=== PATIENT | female | born 1955 | race Caucasian/White ===

== ENCOUNTER → 2023-07-18 | Day surgery (SDC) | payer OTHER ==
--- NOTE | 2023-07-18 10:47 | RAD REPORT ---
EXAM DESCRIPTION: Ultrasound-guided vacuum assisted right axillary tail core biopsy CLINICAL HISTORY: Right axillary tail/ breast mass. N63.31 COMPARISON: Follow Up Axilla Only dated 06/21/2023 FINDINGS: Informed consent was obtained and time-out was performed. The patient's right breast extending into the right axillary tail was prepped and draped in the usual sterile fashion. 1% lidocaine was used for local anesthetic purposes. Utilizing aseptic technique and ultrasound guidance, a 12 gauge vacuum assisted core biopsy device wa s used to obtain 3 core specimens through the mass of interest measuring approximately 3 cm. A post b iopsy clip was then placed. All collected material was sent for cytology. Patient tolerated procedure well. IMPRESSION: Successful ultrasound guided vacuum assisted right breast/ axillary tail mass biopsy.
== END ==
LOC: DS 09:14
PROVIDERS: ATTEND Surgery
DX: N63.31 Unspecified lump in axillary tail of the right breast (principal)
CPT/HCPCS: 19083; 88305

== ENCOUNTER → 2023-10-13 | Emergency (ER) | payer OTHER ==
--- OUTSIDE RECORDS SUMMARY | 2023-10-13 11:05 | XMS REPORT | Clinical Summary ---
Author Name Unknown Organization [facility] Address [address] [place] [address] Care Team Providers Care Rougher Operator Name Role Phone Lucien Tobias MD Primary Care Provid er Floyd Yip MD Unavailable [phone] Encounters Date Type Department Care Team Description 07/28/2023 Community Orders [facility] lFoyd Yip MD after 10/13/2022 Social History Tobacco Use Types Packs/Day Years Used Date Smoking Tobacco: Never Assessed Sex and Gender Information Value Date Recorded Sex Assigned at Not on file Gender Identity Not on file Sexual Orientation Not on file Job Start Date Occupation Industry Not on file Not on file Not on file Plan of Treatment Not on file Care Teams Rougher Operator Relationship Specialty Start Date End Date Lucien Tobias MD [address] [place] [address] PCP - General 10/07/15 Floyd Yip MD [address] [facility] [address] [place] [id number] PCP - External Referring General Surgery 07/28/23
--- NOTE | 2023-10-13 11:30 | EDPHYS ---
Physician Documentation [facility] Name: Rashmi Preciado Age: 67 yrs Sex: Female : 1955 Arrival Date: 10/13/2023 Time: 11:02 Bed IW2 Private MD: ED Physician Markus Rodriguez HPI: 10/12 11:30 This 67 yrs old Female presents to ER via Wheelchair with complaints of Breast Problem. ms3 11:30 67-year-old female with past medical history of lymphoma, Buerger's disease [place] [facility] [place] for left breast erythema and pain. Patient states she had a Port-A-Cath placed on Monday. Patient states her pain is 10/10. Patient denies any alleviating or inciting factors. 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 - Social history:: Smoking status: Patient reports the use of cigarette tobacco products, smokes one-half pack cigarettes per day. ROS: 11:30 Constitutional: Negative for fever, and chills. Neck: Negative for injury, pain, and ms3 swelling, Cardiovascular: Negative for chest pain, and palpitations. Respiratory: Negative for shortness of breath, cough, wheezing, and pleuritic chest pain, Abdomen/GI: Negative for abdominal pain, nausea, vomiting, diarrhea, and constipation, 11:30 : 11:30 Skin: Positive for Erythema, tenderness of left breast, Exam: 11:30 Constitutional: This is a well developed, well nourished patient who is awake, alert, ms3 and in no acute distress. Head/Face: Normocephalic, atraumatic. Neck: Trachea midline, no cervical lymphadenopathy. Supple, full range of motion without nuchal rigidity, or vertebral point tenderness. No Meningismus. Cardiovascular: Regular rate and rhythm with a normal S1 and S2. No gallops, murmurs, or rubs. Normal PMI, no JVD. No pulse deficits. Respiratory: Lungs have equal breath sounds bilaterally, clear to auscultation and percussion. No rales, rhonchi or wheezes noted. No increased work of breathing, no retractions or nasal flaring. Abdomen/GI: Soft, non-tender, with normal bowel sounds. No distension or tympany. No guarding or rebound. No evidence of tenderness throughout. 11:30 Chest/axilla: Inspection: cellulitis, of the left nipple Erythema left breast, Vital Signs: 11:17 BP 114 / 59; Pulse 90; Resp 18 S; Temp 98.5(O); Pulse Ox 94% on R/A; Weight 58.51 kg aa5 (R); Height 5 ft. 9 in. (R); 11:17 Body Mass Index 19.05 (58.51 kg, 175.26 cm) aa5 MDM: 11:29 Patient medically screened. ms3 11:30 Differential Diagnosis Cellulitis versus abscess versus lymphoma. Data reviewed: vital ms3 signs, nurses notes, and as a result, I will discharge patient. Counseling: I had a detailed discussion with the patient and/or guardian regarding the historical points, exam findings, and any diagnostic results supporting the discharge/admit diagnosis, the need for outpatient follow up, to return to the emergency department if symptoms worsen or persist or if there are any questions or concerns that arise at home. Special discussion: I discussed with the patient/guardian in detail that at this point there is no indication for admission to the hospital. It is understood, however, that if the symptoms persist or worsen the patient needs to return immediately for re-evaluation. ED course: Discussed case with Dr. Yip and he will see patient in clinic today. Discussed plan with patient and her . They understand agree with plan. All questions were answered. Return precautions discussed include worsening symptoms, or any other concerns. 11:34 Management of patient was discussed with the following: Global Professional: Dr. Yip. ms3 Administered Medications: No medications were administered Disposition Summary: 10/13/23 11:29 Discharge Ordered Notes: Location: Home ms3 Condition: Stable ms3 Diagnosis - Disorder of breast, unspecified ms3 Followup: ms3 - With: Floyd Yip MD - When: Today - Reason: Recheck today's complaints Discharge Instructions: - Discharge Summary Sheet ms3 - Breast Self-Awareness ms3 - Breast Tenderness ms3 Forms: - Medication Reconciliation Form ms3 - Thank You Letter ms3 - Antibiotic Education ms3 - Prescription Opioid Use ms3 - Patient Portal Instructions ms3 - Leadership Thank You Letter ms3 Signatures: Viri Corea RN RN aa5 Markus Rodriguez DO DO ms3
--- NOTE | 2023-10-13 11:30 | ER ---
Nurse's Notes [facility] Name: Rashmi Preciado Age: 67 yrs Sex: Female : 1955 Arrival Date: 10/13/2023 Time: 11:02 Bed IW2 Private MD: Diagnosis: Disorder of breast, unspecified Presentation: 10/12 11:17 Chief complaint: Patient states: had port-a-cath placed on Monday and has noticed aa5 swelling, redness, and pain to left breast since Monday. Pt reports taking Bactrim since Monday. 11:17 Method Of Arrival: Wheelchair aa5 11:17 Coronavirus screen: At this time, the client does not indicate any symptoms associated aa5 with coronavirus-19. Ebola Screen: Patient denies travel to an Ebola-affected area in the 21 days before illness onset. Initial Sepsis Screen: Does the patient meet any 2 criteria? No. Patient's initial sepsis screen is negative. Does the patient have a suspected source of infection? No. Patient's initial sepsis screen is negative. Risk Assessment: Do you want to hurt yourself or someone else? Patient reports no desire to harm self or others. Onset of symptoms was October 2023. 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 - Social history:: Smoking status: Patient reports the use of cigarette tobacco products, smokes one-half pack cigarettes per day. Assessment: 11:55 Reassessment: Patient is alert, oriented x 3, equal unlabored respirations, skin aa5 warm/dry/pink. Vital Signs: 11:17 BP 114 / 59; Pulse 90; Resp 18 S; Temp 98.5(O); Pulse Ox 94% on R/A; Weight 58.51 kg aa5 (R); Height 5 ft. 9 in. (R); 11:17 Body Mass Index 19.05 (58.51 kg, 175.26 cm) aa5 ED Course: 11: Patient arrived in ED. ra3 11:14 Markus Rodriguez DO is Attending Physician. ms3 11:17 Arm band placed on. aa5 11:18 Triage completed. aa5 11: Floyd Yip MD is Referral Physician. ms3 11:55 No provider procedures requiring assistance completed. Patient did not have IV access aa5 during this emergency room visit. Administered Medications: No medications were administered Outcome: : Discharge ordered by . ms3 11:55 Discharged to home via wheelchair, Pt was instructed to go directly to Dr. Yip's aa5 office. 11:55 Condition: stable aa5 11:55 Discharge instructions given to patient, Instructed on discharge instructions, follow up and referral plans. Demonstrated understanding of instructions, follow-up care, 11:56 Patient left the ED. bc6 Signatures: Viri Corea, RN RN aa5 Markus Rodriguze DO DO ms3 Naseem Sadie bc6 Malia Nassar ra3 Corrections: (The following items were deleted from the chart) 11:25 11:17 Chief complaint: Patient states: had port-a-cath placed on Monday and has noticed aa5 swelling, redness, and pain to left breast since Monday. aa5
[2023-10-13 12:25] VITALS: BP 114/59; TEMP 98.5; O2SAT 94
== END ==
LOC: ER 11:02
DX: N61.0 Mastitis without abscess (principal); N64.89 Other specified disorders of breast; Z88.0 Allergy status to penicillin; Z85.72 Personal history of non-Hodgkin lymphomas
CPT/HCPCS: 99282

== ENCOUNTER 2023-10-18 08:19 | Day surgery (SDC) | payer OTHER ==
[2023-10-18 08:28] LABS: Absolute Basophils 0.1 K/uL (0-0.5); Absolute Eosinophils 0.5 K/uL (0-0.5); Absolute Lymphocytes (CBC) 1.7 K/uL (0.7-4.9); Absolute Monocytes 1.1 K/uL (0.1-1.3); Absolute Neutrophil 8.1 K/uL (1.8-8.0); Basophils % 0.7 % (0-1.3); Hematocrit 48.3 % (36.0-45.0); Hemoglobin 15.9 g/dL (12.0-15.0); MCH 29.7 pg (27.0-35.0); MCHC 32.9 g/dL (32.0-36.0); MCV 90.3 fL (80-100); MPV 7.1 fL (7.6-11.3); Monocytes % 9.4 % (3.3-12.3); Neutrophils % 70.9 % (41.7-73.7); Nucleated Red Blood Cells % 0.1 % (0-0); Platelets 359 thou/uL (152-406); RBC Red Blood Cell Count 5.35 M/uL (3.86-4.86); Red Cell Distribution Width 14.4 % (12.1-15.2)
[2023-10-18 08:43] LABS: Anion Gap 9.6 mEq/L (5.0-15.0); Potassium 3.6 mEq/L (3.5-5.1)
[2023-10-18] MEDS: Ringers Lactate 1,000 ML IV ONE (09:00)
[2023-10-18] MEDS ORDERED: MIDAZOLAM HCL 2 MG/2 ML INJ ONE (09:15)
[2023-10-18] MEDS ORDERED: ONDANSETRON 4 MG/2 ML VIAL ONE (09:15)
[2023-10-18] MEDS ORDERED: propofoL 200 MG/20 ML VIAL IV ONE (09:15)
[2023-10-18] MEDS ORDERED: LIDOCAINE 2% MPF 5 ML VIAL ONE (09:15)
[2023-10-18] MEDS ORDERED: FENTANYL CITR 100 MCG/2 ML ONE (09:15)
[2023-10-18] MEDS: CIPROFLOXACIN 400mg IV 400 MG/200 ML BAG IV ONE (09:57)
[2023-10-18] MEDS ORDERED: dexAMETHasone 10 MG/ML VIAL ONE (09:58)
[2023-10-18] MEDS ORDERED: EPHEDRINE SULF 50 MG/ML VIAL ONE (09:59)
--- NOTE | 2023-10-18 10:35 | P.BOP ---
Preoperative diagnosis: Left breast retroareolar/nipple abscess Postoperative diagnosis: same Primary procedure: 1. I & D Left breast retroareolar/nipple abscess 3x3cm Secondary procedure: 2. incisional biopsy Left breast retroareolar/nipple Estimated blood loss: <10cc Specimen: biopsy plus culture Findings: as above Anesthesia: General Drain(s): Other (packing 08/10" ) Transferred to: Recovery Room Condition: Good
[2023-10-18 12:22] VITALS: BP 113/60; TEMP 97.4; O2SAT 94
--- NOTE | 2023-10-18 13:37 | OP ---
Date of Procedure: 10/18/2023 Surgeon: Floyd Yip MD Preoperative Diagnosis: Left breast retroareolar nipple abscess and cellulitis. Postoperative Diagnosis: Left breast retroareolar nipple abscess and cellulitis. Procedure: Incision and drainage of left breast retroareolar and nipple abscess 3 x 3 cm with incisi onal biopsy of left breast retroareolar/nipple. Estimated Blood Loss: Less than 10 mL. Specimen: Biopsy plus culture. Finding: The patient has this behind the nipple erythema with abscess present. Etiology of that is unknown. Obviously, she has history of cancer right now pending during treatment of chemotherapy for another lymphoma she has she is dealing with. This came on top of all this. She also had a recent procedure done, Port-A-Cath placement, that area is intact, with no infection in that region, but obv iously during her immunocompromised time all the counts are on top, this abscess has to be addressed. We just do not want this to be another burden for her. So she understands the need for dressing ch anges after and also follow up the biopsy. She states that less than a year ago she had a mammogram done, that she does not claim to have anything important. She was asked to check that with the [facility] doctor. The benefits, alternatives, risks including, but not limited to, infection, bleeding, dam age to adjacent structures, anesthesia complication, nonhealing wound, MA, even . She also unde rstands this may not relieve her symptoms. She might need more than one surgical intervention. She understood, signed consent. Description Of Procedure: The patient brought to the operating room, placed in supine position. Ane sthesia was done without complication. Left breast specifically nipple areolar complex was prepped a nd draped in usual sterile fashion. Time-out was called. Local anesthesia was applied followed by I and D of abscess about 3 x 3 cm contained. Area was irrigated after culture, then we sent a biopsy of that region. Obviously we have to look for neoplasia or even Paget disease and that is why we sen t that biopsy. Area was packed with iodoform packing. The patient tolerated the procedure well. Th e patient sent to recovery in stable condition. HM/MODL Voice ID: [id number] Report ID: [id number]
--- NOTE | 2023-10-18 13:40 | DS ---
Date of Discharge: 10/18/2023 Diagnosis: Left breast retroareolar nipple abscess cellulitis. Procedure: I and D of left breast retroareolar abscess with incisional biopsy of left breast. Disposition: Home. Activity: As tolerated. No heavy lifting. Followup: In the next 48 hours in my office. The patient will need wet to dry dressing daily. MARIA ESTHER/EJ Voice ID: [id number] Report ID: [id number]
== END 2023-10-18 11:57 | disposition home or self-care (01) ==
LOC: OR 08:19
PROVIDERS: ATTEND Surgery
PROC: 0HBX0ZX Excision of Left Nipple, Open Approach, Diagnostic (ICD-10-PCS; 2023-10-18)
PROC: 0J960ZX Drainage of Chest Subcutaneous Tissue and Fascia, Open Approach, Diagnostic (ICD-10-PCS; principal; 2023-10-18 10:45)
DX: N61.1 Abscess of the breast and nipple (principal); F32.A Depression, unspecified; F41.9 Anxiety disorder, unspecified; Z88.0 Allergy status to penicillin; F17.210 Nicotine dependence, cigarettes, uncomplicated; J44.9 Chronic obstructive pulmonary disease, unspecified; N02.B1 Recurrent and persistent immunoglobulin A nephropathy with glomerular lesion; Z89.512 Acquired absence of left leg below knee; Z89.029 Acquired absence of unspecified finger(s)
CPT/HCPCS: 10060; 87070; 85025; 80048; 36415; 87205; 88305; 87075; 87076; 19101; J2704; J2001; J3010; J1100; J2405; J0744; J7120; J2250

== ENCOUNTER 2024-04-01 10:49 | Day surgery (SDC) | payer OTHER ==
--- NOTE | 2024-03-29 14:14 | RAD REPORT ---
EXAM DESCRIPTION: RAD - Chest Pa And Lat (2 Views) - 03/29/2024 2:08 pm CLINICAL HISTORY: PRE OP Chest pain. COMPARISON: <Comparisons> FINDINGS: The lungs are emphysematous but clear. Small calcified granuloma left apex. The heart is n ormal in size. No displaced fractures. Left port catheter its tip in the SVC. IMPRESSION: COPD.
[2024-04-01] MEDS ORDERED: LIDOCAINE 1% MPF 5 ML VIAL ONE (10:52)
[2024-04-01] MEDS ORDERED: propofoL 200 MG/20 ML VIAL IV ONE (10:52)
[2024-04-01] MEDS ORDERED: Ringers Lactate 1,000 ML IV ONE (11:09)
[2024-04-01] MEDS: CIPROFLOXACIN 400mg IV 400 MG/200 ML BAG IV ONE (11:57)
[2024-04-01] MEDS ORDERED: MIDAZOLAM HCL 2 MG/2 ML INJ ONE (12:03)
--- NOTE | 2024-04-01 12:20 | P.BOP ---
Preoperative diagnosis: hx of lymphoma, s/p chemotx Postoperative diagnosis: same Primary procedure: Removal of portacath Estimated blood loss: <10cc Specimen: intact portacath Findings: as above Anesthesia: General Complications: None Transferred to: Recovery Room Condition: Good
[2024-04-01] MEDS ORDERED: Mastisol Adhesive Liq ONE (12:21)
[2024-04-01 17:43] VITALS: BP 112/65; TEMP 97.7; O2SAT 93
--- NOTE | 2024-04-02 00:28 | OP ---
Date of Procedure: 04/01/2024 Surgeon: Floyd Yip MD Diagnosis: History of lymphoma, status post chemotherapy. Postop Diagnosis: History of lymphoma, status post chemotherapy. Procedure: Removal of Port-A-Cath. Estimated Blood Loss: Less than 10 cc. Specimen: Intact Port-A-Cath. Anesthesia: General plus local. Complications: None. Indication: This is a case of a 68-year-old patient just finished a round of chemotherapy for her ly mphoma and she was told she is in remission and she needed her Port-A-Cath out, so she came to us for removal. The benefits, alternatives, and risks of removal of Port-A-Cath fully explained, which inc lude, but not limited to infection, bleeding, damage to adjacent structures, anesthesia complication, pneumothorax, hemothorax, DVTs, PE, OK, even . She also understands this may not relieve the s ymptoms. She might need more than one surgical intervention. She understood, signed a consent. Description Of Procedure: The patient brought to the operating room, placed in supine position. Ane sthesia was done without complication. A time-out was called. Left chest was prepped and draped in sterile fashion. Local anesthesia was applied followed by sharp incision of the skin after time-out. Incision was carried down until we found the Port-A-Cath. We released the capsule and then pulled intact Port-A-Cath without assistance and applied pressure for 15 minutes in the insertion site. The area was irrigated. Hemostasis obtained. Subcutaneous tissue was closed with 3-0 chromic and Steri -Strips on top. Sponge count, instrument counts correct. Patient tolerated the procedure well. Patient was se nt to recovery in stable condition. MARIA ESTHER/EJ Voice ID: [id number] Report ID: [id number]
--- NOTE | 2024-04-02 00:36 | OP ---
Date of Procedure: 04/01/2024 Surgeon: Floyd Yip MD Diagnosis: History of lymphoma, status post chemotherapy. Procedure: Removal of Port-A-Cath. Disposition: Home. Activity: As tolerated. No lifting. Follow Up: In my office in 1 week; call for appointment [phone]. Keep area dry for 48 hours, then may shower. Keep Steri-Strips intact. MARIA ESTHER/EJ Voice ID: [id number] Report ID: [id number]
== END 2024-04-01 13:56 | disposition home or self-care (01) ==
LOC: OR 10:49
PROVIDERS: ATTEND Surgery
PROC: 0JPT0WZ Removal of Totally Implantable Vascular Access Device from Trunk Subcutaneous Tissue and Fascia, Open Approach (ICD-10-PCS; principal; 2024-04-01 12:45)
DX: C85.90 Non-Hodgkin lymphoma, unspecified, unspecified site (principal); Z92.21 Personal history of antineoplastic chemotherapy; Z45.2 Encounter for adjustment and management of vascular access device
CPT/HCPCS: 88300; 71046; 36590; J2704; J2001; J2250; J0744; J7120